=== PATIENT | female | born 1960 | race Caucasian/White ===

== ENCOUNTER → 2016-09-14 | Outpatient (CLI) | payer BC ==
--- NOTE | 2016-09-14 15:22 | MR ---
MRI CERVICAL SPINE: CLINICAL HISTORY: Neck pain per order. Severe pain in neck radiating down both arms into hands since June per patient. TECHNIQUE: Multiplanar, multisequence imaging of the cervical spine is performed without IV contrast. COMPARISON: None. FINDINGS: Sagittal images of the cervical spine show the craniocervical junction to appear within nor mal limits. The cervical and upper thoracic spinal cord is normal in course, caliber, and signal. Th ere is slight grade 1 retrolisthesis of C4 on C5 and C5 on C6. Moderate disc space narrowing C4-C5, C 5-C6, and C6-C7 levels is seen with mild spurring. Posterior disc herniations are seen effacing ante rior thecal sac at C4-C5 through C6-C7 levels on sagittal images. The vertebral body heights are norm al. The bone marrow signal intensity is within normal limits. Axial images show the C2-C3 and C3-C4 levels to appear within normal limits. Axial images at C4-C5 level show uncovertebral facet degenerative changes and lobulated broad-based p osterior disc protrusion effacing anterolateral thecal sac and causing moderate bilateral neural fora neil narrowing. Axial images at C5-C6 level show lobulated broad-based posterior disc protrusions with slightly more prominent left foraminal component with spurring, there is asymmetric moderate to advanced left-sided neural foraminal narrowing and moderate right-sided neural foraminal narrowing seen. Effacement ante rior thecal sac is noted. Axial images at C6-C7 level show broad-based lobulated paracentral disc protrusion effacing anterolat eral thecal sac and causing moderate to advanced left and moderate right-sided neural foraminal narro wing. Axial images at C7-T1 level are felt within normal limits. IMPRESSION: Multilevel degenerative changes C4-C5 through C6-C7 levels effacing anterolateral thecal sac and causing moderate to advanced left greater than right neural foraminal narrowing with further details as noted in body of report.
== END | disposition home or self-care (01) ==
LOC: RADMRIMAIN 13:20
PROVIDERS: ATTEND Orthopaedic Surgery
DX: M99.71 Connective tissue and disc stenosis of intervertebral foramina of cervical region (principal); M47.812 Spondylosis without myelopathy or radiculopathy, cervical region
CPT/HCPCS: 72141

== ENCOUNTER → 2016-09-28 | Outpatient (CLI) | payer BC ==
[2016-09-28 15:37] LABS: CH 25.5; CHCM 30.7; HCT 43.8 % (34.0-46.0); HDW 2.77; HGB 13.7 gm/dL (11.4-16.0); Hypochromasia Moderate; MCH 26.1 pg (25.0-35.0); MCHC 31.4 g/dL (31.0-37.0); MCV 83.3 fL (80.0-100.0); Mean Platelet Volume 6.4; RBC 5.25 m/uL (3.80-5.40); RDW 12.6 % (11.5-15.5)
[2016-09-28 15:51] LABS: Anion Gap 14 mmol/L; Blood Urea Nitrogen 18 mg/dL (7-17); C Reactive Protein 49.6 mg/L (<10.0); Calcium 9.9 mg/dL (8.4-10.2); Carbon Dioxide 22 mmol/L (22-30); Chloride 104 mmol/L (98-107); Glucose 113 mg/dL (74-99); Non-African American GFR(MDRD) >60 (>60 ml/min/1.73 sqM); Potassium 4.4 mmol/L (3.5-5.1); Sodium 140 mmol/L (137-145)
[2016-09-28 16:35] LABS: Erythrocyte Sedimentation Rate 62 mm/hr (0-20)
== END | disposition home or self-care (01) ==
LOC: LABWHC1 14:51
PROVIDERS: ATTEND Orthopaedic Surgery Orthopaedic Surgery of the Spine
DX: M62.81 Muscle weakness (generalized) (principal); M54.2 Cervicalgia; Z98.1 Arthrodesis status
CPT/HCPCS: 36415; 80048; 83970; 84439; 84443; 85027; 85652; 86140

== ENCOUNTER → 2019-03-08 | Outpatient (CLI) | payer MEDICARE ==
--- NOTE | 2019-03-14 10:55 | MR ---
EXAMINATION TYPE: MR lumbar spine wo/w con DATE OF EXAM: 03/08/2019 COMPARISON: CT myelogram from [facility] dated 06/09/2018 HISTORY: Radiculopathy, Arthrodesis, pain lower back and hip area and left CONTRAST: 6.5 mL intravenous Gadavist. TECHNIQUE: Multiplanar, multisequence images of the lumbar spine were acquired. FINDINGS: Heart terminates at the L1-L2 level. L5-S1: No significant disc bulge or disc herniation. No spinal canal stenosis. No foraminal stenosi s. There is been laminectomy. No AP spinal canal stenosis is present. Facets cannot be well evaluated due to magnetic susceptibility artifact. L4-L5: No significant disc bulge or disc herniation. No spinal canal stenosis. There is mild to mod erate right foraminal narrowing. No nerve root impingement is identified. Level has limitation due to susceptibility artifact. No obvious AP spinal canal impingement is evident.. L3-L4: Narrowing of the disc height. No disc bulge is evident. No spinal canal stenosis is present. T here is [id number] right foraminal stenosis. L2-L3: No significant disc bulge or disc herniation. No spinal canal stenosis. There is some facet hypertrophy with ligamentum flavum laxity causing posterior lateral thecal sac compression. Neural fo ramen are patent. L1-L2: No significant disc bulge or disc herniation. No spinal canal stenosis. No foraminal stenosi s. T12-L1: No significant disc bulge or disc herniation. No spinal canal stenosis. No foraminal stenos is. No abnormal enhancement. Comparison: The posterior lateral thecal sac compression at L2-3 is evident in comparison. No significant interval changes are evident. IMPRESSION: 1. Mild right-sided foraminal narrowing L4-5 and L5-S1. 2. Multilevel mid to lower lumbar spine postsurgical changes. 3. No radiologic abnormality identified to account for left hip and low back pain.
== END | disposition home or self-care (01) ==
LOC: RADMRIMAIN 10:35
PROVIDERS: ATTEND Family Medicine
DX: M48.061 Spinal stenosis, lumbar region without neurogenic claudication (principal); Z98.1 Arthrodesis status; Z98.890 Other specified postprocedural states
CPT/HCPCS: 72158; A9585